=== PATIENT | female | born 1980 | race Caucasian/White ===

== ENCOUNTER 2022-03-26 11:40 | Emergency (ER) | payer BC, OTHER ==
[~2022-03-26] VITALS: Ht 167.6 cm; Wt 61.4 kg
[~2022-03-26 11:40] MED LIST: PRENATAL VITAMI1 TA5 PO; REGLAN 10MG10 MG/TAB PO; SLOW FE160 MG
[2022-03-26 11:41] VITALS: TEMP 98.3
[2022-03-26 12:58] VITALS: BP 122/78; PULSE 68
== END 2022-03-26 13:01 | disposition home or self-care (01) ==
LOC: COL.ER 11:40
DX: S16.1XXA Strain of muscle, fascia and tendon at neck level, initial encounter (principal); R55 Syncope and collapse; W08.XXXA Fall from other furniture, initial encounter; W22.8XXA Striking against or struck by other objects, initial encounter; Y92.009 Unspecified place in unspecified non-institutional (private) residence as the place of occurrence of the external cause

== ENCOUNTER 2023-02-12 06:59 | Day surgery (SDC) | payer BC ==
[~2023-02-12] VITALS: Ht 167.6 cm; Wt 58.1 kg
[2023-02-12] MEDS ORDERED: PROTONIX 40MG T40 MG PO (07:40)
[2023-02-12] MEDS ORDERED: PEPCID 20MG TAB20 MG PO (07:41)
[2023-02-12] MEDS ORDERED: RELPAX 40MG TAB40 MG PO (07:41)
[2023-02-12] MEDS ORDERED: NURTEC ODT75 MG PO (07:42)
[2023-02-12] MEDS ORDERED: VALTREX1 GM PO (07:42)
[2023-02-12 07:49] VITALS: BP 106/67; PULSE 83; TEMP 97.6
[2023-02-12 08:55] VITALS: BP 94/77; PULSE 72; TEMP 97.4
--- NOTE | 2023-02-12 08:55 | NUR ---
The [facility] The patient ambulated from the cart to the recliner in her room with the stand by assistance of two nurses and appeared to tolerate the activity well. Vital signs were started at this time. The patient agrees to try some ice water and a muffin. The patient's friend is at her bedside. Call light is within reach. Warm blanket provided.
[2023-02-12 09:10] VITALS: BP 99/76; PULSE 71
[2023-02-12 09:25] VITALS: BP 100/61; PULSE 99
--- NOTE | 2023-02-12 09:25 | NUR ---
Dr. Ford has been in to speak with the patient and her friend regarding the findings of the procedure. Discharge instructions were reviewed with the patient and her friend at this time. They both verbalized undestanding and have no questions for the nurse at this time. The patient's IV to her right hand was removed and a pressure dressing was applied to the site. The nurse instructed to the patient to get dressed and notify the staff when she is ready to be escoreted out.
--- NOTE | 2023-02-12 09:36 | NUR ---
The patient was escorted out via wheelchair to a private vehicle by SIRIA Osorio. The patien's belongings and discharge paperwork were sent with her. The patient's friend, Maegan, is present to drive her home.
== END 2023-02-12 09:36 | disposition home or self-care (01) ==
LOC: SDCO 06:59
DX: R10.9 Unspecified abdominal pain (principal); R10.13 Epigastric pain; R14.0 Abdominal distension (gaseous)
CPT/HCPCS: J2704; J7120